=== PATIENT | female | born 1975 | race Caucasian/White ===

== ENCOUNTER 2016-12-04 07:48 | Emergency (ER) | payer OTHER ==
[~2016-12-04] VITALS: Ht 170.2 cm; Wt 95.5 kg
[~2016-12-04 07:48] MED LIST: ACYC400T2 PO; ALPR0.5T PO; CHOL500050 PO; CYAN100017 SL; LOSA100T3 PO; NPR500T PO; PHEN-773 PO; PROM25TA14 PO; TRAM-14 PO; TRAM50TA2 PO
[2016-12-04 07:50] VITALS: BP 145/88; PULSE 90; RESP 20; O2SAT 97
[2016-12-04] MEDS ORDERED: Ondansetron 8 mg ODT Tablet ONE (08:10)
[2016-12-04 08:18] LABS: BASOPHILS % (AUTO) 0.2 % (0-3); EOSINOPHILS % (AUTO) 2.1 % (0-5); MONOCYTES % (AUTO) 9.2 % (4-12); Mean Corpuscular Hemoglobin 30.3 pg (27.0-35.0); Mean Corpuscular Volume 90.4 fL (81-100); NEUTROPHILS % (AUTO) 59.4 % (40-74); Platelet Count 268 bil/L (150-400)
[2016-12-04 08:56] LABS: Magnesium 1.8 mg/dL (1.6-2.6)
--- NOTE | 2016-12-04 09:30 | ED.REPORT ---
HPI-Abd Pain F 40 and Over Date of Service Dec 04, 2016 ED Provider: Mika Lau MD Patient is a 41 year old female who presents to the ED complaining of abdominal pain onset 5 days ago. Associated symptoms include nausea, constipation (over the last 4 months), SOB with exertion, and dizziness. She denies vomiting, diarrhea, dysuria, cough, or any other symptoms. Her last BM was yesterday and she is passing gas. Nursing Notes Stated Complaint: ABDOMINAL PAIN Chief Complaint: Female Abdominal Pain Nursing Notes Reviewed: Yes Allergies: Coded Allergies: morphine (Verified Allergy, Intermediate, nausea/vomiting, 12/04/16) trazodone (Verified Allergy, Intermediate, CHEST PAIN, 12/04/16) metoclopramide (Verified Allergy, Unknown, feel like she wants to run.., ) sertraline (Verified Allergy, Unknown, 12/04/16) DOES NOT REMEMBER Scheduled Acyclovir (Acyclovir) 400 Mg Tablet 400 MG PO BID Losartan Potassium (Cozaar) 100 Mg Tablet 100 MG PO DAILY Scheduled PRN Alprazolam (Xanax) 0.5 Mg Tablet 0.5 MG PO TID PRN PRN For Anxiety Magnesium Hydroxide (Milk of Magnesia) 400 Mg/5 Ml Oral.susp 30 ML PO BID PRN PRN For Constipation hold for diarrhea, Naproxen (Naproxen) 500 Mg Tab 500 MG PO BID PRN PRN For Pain Ondansetron (Zofran) 4 Mg Tablet 4 MG PO Q4H PRN PRN For Nausea Phenazopyridine (Phenazopyridine) 100 Mg Tablet 100 MG PO TID PRN PRN . Promethazine (Promethazine) 25 Mg Tablet 25 MG PO Q6H PRN PRN For Nausea Tramadol (Tramadol) 50 Mg Tablet 50 MG PO HS PRN PRN For Pain Tramadol (Ultram) 50 Mg Tablet 50 MG PO Q4H PRN PRN Pain Miscellaneous Medications Cholecalciferol (Vitamin D3) (Vitamin D3) 50,000 Unit Capsule 50,000 UNIT PO Cyanocobalamin (Vitamin B-12) (Vitamin B-12) 1,000 Mcg Tab.subl 1,000 MCG SL General Time Seen by MD: 09:36 Chief Complaint Abdominal pain Hx Obtained From: Patient Arrived By: Walk-in Sudden in Onset?: Yes Onset Occurred: 5 days ago Symptom Duration: Since onset Similar Sx Previous: No Risk Factors )( AAA Risk Stratification HypertensionNo Smoking Risk factors reviewed Past Medical History Past Medical History Fibromyalgia Arthritis Interstitial cystitis Depression Reports: Hypertension Past Surgical History Tubal ligation Cholecystectomy Hysterectomy Right salpingo-oophorectomy Reports: Appendectomy, Tonsillectomy Smoking History Never Smoker Social History Alcohol Use: "Social" Drug Use: Denies drug use Other Social History: Ambulatory Status Independent Review of Systems Constitutional: Denies: Chills, Fever Respiratory: Reports: Shortness of breath, Denies: Non-productive cough GI: Reports: Abdominal pain, Constipation, Nausea, Denies: Diarrhea, Vomiting Female: Denies: Dysuria Complete sys rev & neg: except as marked. Neurologic: Reports: Dizziness Physical Exam Vital Signs Vital Signs (First) Date Time Temp Pulse Resp B/P Pulse Ox O2 Delivery O2 Flow Rate FiO2 12/04/16 07:50 36.1 90 20 145/88 97 Room Air Initial VS: Reviewed Head / Eyes: Atraumatic, Normocephalic Skin: Warm, Dry Neurologic: Alert, Oriented, Nonfocal Psychiatric: Mood/affect normal, Behavior normal, Normal thought content General/Constitutional: Awake, Alert, Well developed Respiratory / Chest: Breath sounds NL, Breath sounds = bilat, No respiratory distress Cardiovascular: Heart rate NL, Regular rhythm, Heart sounds NL Tenderness/Guarding/Rebound: Positive: Guarding voluntary, Tender RUQ... Bowel Sounds / Distention: Positive: Distention mild Back: Atraumatic Interpretation & Diagnostics Lab Results Interpretation Result Diagram: 12/04/16 0800 12/04/16 0800 Test 12/04/16 08:00 12/04/16 08:19 White Blood Count 6.5th/mm3 (3.8-10.1) Red Blood Count 4.69mil/mm3 (3.90-5.20) Hemoglobin 14.2g/dL (12.0-15.6) Hematocrit 42.4% (35.0-46.0) Mean Corpuscular Volume 90.4fL (81-100) Mean Corpuscular Hemoglobin 30.3pg (27.0-35.0) Mean Corpuscular Hemoglobin Concent 33.5% (32.0-37.0) Red Cell Distribution Width 13.2% (12.3-15.4) Platelet Count 268bil/L (150-400) Neutrophils (%) (Auto) 59.4% (40-74) Lymphocytes (%) (Auto) 28.8% (14-46) Monocytes (%) (Auto) 9.2% (4-12) Eosinophils (%) (Auto) 2.1% (0-5) Basophils (%) (Auto) 0.2% (0-3) Sodium Level 141mEq/L (134-144) Potassium Level 3.6mEq/L (3.5-5.2) Chloride Level 102mEq/L (97-108) Carbon Dioxide Level 26mmol/L (18-29) Blood Urea Nitrogen 10mg/dL (6-24) Creatinine 0.73mg/dL (0.57-1.00) Estimat Glomerular Filtration Rate 125mL/min (>59) Glucose Level 105mg/dL (60-99) Calcium Level 10.4mg/dL (8.5-10.1) Magnesium Level 1.8mg/dL (1.6-2.6) Total Bilirubin 0.4mg/dL (0.0-1.2) Aspartate Amino Transf (AST/SGOT) 20U/L (0-50) Alanine Aminotransferase (ALT/SGPT) 35U/L (0-32) Alkaline Phosphatase 66U/L (25-150) Troponin T 0.010ug/L (0.0-0.011) Total Protein 7.0g/dL (6.4-8.4) Albumin 4.3g/dL (3.4-5.0) Lipase 37U/L (13-60) Hold James Top Tube Received (Received) Hold Urine Received (Received) ECG Interpretation ECG Interpretation: Sinus rate 79 No abnormalities Time: 09:50 Interpreted by: ED physician X-Ray Abdominal Interpretation IMPRESSION: No definite evidence of bowel obstruction or free air. Dictated by: Melinda Bonner MD, PhD on 12/04/2016 at 11:16 Approved by: Melinda Bonner MD, PhD on 12/04/2016 at 11:16 Study: 2 view Interpretation / Wet Read by: Interpret - Radiologist CT Abd / Pelvis Interpretation IMPRESSION: 1. Hepatic steatosis. 2. Status post cholecystectomy. 3. No free fluid or air. 4. No inflammatory changes. 5. No dilated loops of bowel. 6. Possible prior appendectomy. Please correlate with surgical history. 7. 2 mm nonobstructing right renal stone. Dictated by: Melinda Bonner MD, PhD on 12/04/2016 at 13:03 Approved by: Melinda Bonner MD, PhD on 12/04/2016 at 13:03 Study type: Abdominal CT IV contrast Interpretation / Wet Read by: Interpret - Radiologist Re-Eval/Medical Decision Med Decision/Clinical Course Nonspecific abdominal pain, there may be a component of constipation herabdominalseries.Doingmuchbetterandwillbedischarged.MilkofmagnesiaandZofr anprescribed.Returnprecautionsgiven. Re-Evaluation/Progress #1: Time of Eval: 11:06 )( Re-Eval Abdomen: Tenderness Re-Evaluation/Progress Note: Rechecked patient. Her RUQ pain persists. She had positional dizziness when sitting up. Performed full neurological exam. Cranial nerves II-XII intact. Cerebellar, sensory, and motor functions all normal. No indication that transient vertigo is a CVA. Re-Evaluation/Progress #2: Time of Eval: 13:19 )( Re-Eval Abdomen: Distention (Mild ) Re-Evaluation/Progress Note: Patient is feeling better. Discussed plan for discharge. Patient understands and agrees with plan. All questions addressed at this time. Counseled Regarding: Diagnosis, Lab results, Need for follow-up, When/why to return to ED Discharge & Departure Primary Impression: Pain, abdominal, nonspecific Disposition: Home Discharge Condition All VS Reviewed: Yes Condition: Stable Additional Instructions: Use milk of magnesia to help with bowel movements. Take Zofran as needed for nausea. Follow-up with your regular doctor. Return to the ER as needed for worsening abdominal pain or other concerns. Referrals: Yohana Ramires DO (PCP) Scribe Attestation Portions of this note were transcribed by Wendy Bernal. I, Dr. Lau personally performed the history, physical exam and medical decision-making; I reviewed and confirmed the accuracy of the information in the transcribed note. Signed by: Wendy Bernal 12/04/16, 1323 copies to: Yohana Ramires Timothy S DO Dec 04, 2016 09:30 WENDY BERNAL Dec 04, 2016 09:42
[2016-12-04] MEDS ORDERED: Alum-Mag Hydrox-Simeth 30 mL Suspension PO ONE (09:40)
[2016-12-04] MEDS ORDERED: 0.9% Sodium Chloride 1,000 ML IV ONE ×2 (09:40→11:20)
[2016-12-04] MEDS: Ondansetron 2 mg/mL 2 mL Inj IVPUSH PRN ×3 (10:05→12:38)
[2016-12-04] MEDS ORDERED: Ketorolac 15 mg/mL Inj IVPUSH ONE (11:20)
--- NOTE | 2016-12-04 11:21 | DRSVH ---
PROCEDURE: X-RAY ACUTE ABDOMINAL SERIES ([id number]) INDICATIONS: upper abd pain, distention TECHNIQUE: One view chest and two views of the abdomen were acquired. COMPARISON: [facility], CR, ABD ACUTE SERIES, 09/16/2011, 14:55. FINDINGS: Surgical changes and devices: Cholecystectomy clips Chest: Lungs are clear. Heart size is normal. No pleural effusions. No pneumoperitoneum. Abdomen: Bowel gas pattern is normal. No suspicious calcifications. Visualized solid organ contour s appear normal. Bones: No suspicious bony lesions. IMPRESSION: No definite evidence of bowel obstruction or free air. Dictated by: Melinda Bonner MD, PhD on 12/04/2016 at 11:16 Approved by: Melinda Bonner MD, PhD on 12/04/2016 at 11:16
[2016-12-04 12:43] VITALS: BP 131/57; PULSE 88; O2SAT 98
--- NOTE | 2016-12-04 13:04 | DRSVH ---
PROCEDURE: CT ABDOMEN AND PELVIS WITH CONTRAST ([id number]) INDICATIONS: RUQ pain TECHNIQUE: After the administration of intravenous contrast, 5 mm thick sections acquired from the diaphragm to the symphysis. 5 mm coronal and sagittal reformats were acquired. For radiation dose reduction, the following was used: automated exposure control, adjustment of mA and/or kV according to patient siz e. COMPARISON: None. FINDINGS: Image quality: Excellent. ABDOMEN: Lung bases: Lung bases are clear. Heart size is normal. Solid organs: Liver and spleen are normal in size and enhancement. Diffuse fatty infiltration of the liver is noted. Gallbladder is surgically absent. Biliary system is non dilated. Pancreas enhances normally. No adrenal nodules. Kidneys demonstrate normal size and enhancement, without hydronephro sis. 2 mm nonobstructing right renal stone is noted. Small left renal cyst is noted. Peritoneum and bowel: Bowel loops demonstrate normal wall thickness and caliber. No free fluid or a ir. The appendix is not identified and may be surgically absent. Nodes and vessels: No retroperitoneal or mesenteric adenopathy by size criteria. Aorta and inferior vena cava are normal in size. Miscellaneous: No ventral hernias. PELVIS: Genitourinary: Bladder wall thickness is normal. Small left adnexal follicles are noted. The uterus is atrophic or surgically absent. Miscellaneous: No inguinal hernias or adenopathy. Bones: No suspicious bony lesions. No vertebral body compression fractures. IMPRESSION: 1. Hepatic steatosis. 2. Status post cholecystectomy. 3. No free fluid or air. 4. No inflammatory changes. 5. No dilated loops of bowel. 6. Possible prior appendectomy. Please correlate with surgical history. 7. 2 mm nonobstructing right renal stone. Dictated by: Melinda Bonner MD, PhD on 12/04/2016 at 13:03 Approved by: Melinda Bonner MD, PhD on 12/04/2016 at 13:03
[2016-12-04] MEDS ORDERED: MAGN400O4 PO (13:17)
[2016-12-04] MEDS ORDERED: ONDA4TAB6 PO (13:17)
[2016-12-04 13:30] VITALS: BP 131/98; PULSE 83; RESP 20; O2SAT 98
[2017-02-26] MEDS ORDERED: METO-272 PO (12:57)
[2017-02-26] MEDS ORDERED: MULT-666 PO (12:57)
[2017-02-26] MEDS ORDERED: HYDR25TA4 PO (12:57)
== END 2016-12-04 13:31 | disposition home or self-care (01) ==
LOC: SED 07:48
DX: R10.11 Right upper quadrant pain (principal); R11.0 Nausea; K59.00 Constipation, unspecified; R06.02 Shortness of breath; R42 Dizziness and giddiness; M79.7 Fibromyalgia; I10 Essential (primary) hypertension; Z90.49 Acquired absence of other specified parts of digestive tract; Z88.5 Allergy status to narcotic agent; Z88.8 Allergy status to other drugs, medicaments and biological substances
CPT/HCPCS: 36415; 74022; 74177; 80053; 83690; 83735; 84484; 85025; 93005; 96361; 96374; 96375; 96376; 99285; J1885; J2405; J7030; Q9967

== ENCOUNTER 2017-01-21 15:28 | Emergency (ER) | payer OTHER ==
[~2017-01-21] VITALS: Ht 170.2 cm; Wt 95.0 kg
[~2017-01-21 15:28] MED LIST changes: +MAGN400O4 PO; +ONDA4TAB6 PO
[2017-01-21 15:31] VITALS: BP 181/104; PULSE 118; RESP 18; O2SAT 98
--- NOTE | 2017-01-21 16:13 | ED.REPORT ---
HPI-Abd Pain F 40 and Over Date of Service Jan 21, 2017 ED Provider: De Rocha MD Patient is a 41 year old female with a history of constapation who presents to the ED complaining of rectal bleeding onset Sunday but worse today. Associated symptoms include abdominal pain and back pain onset Sunday. Her bleeding has gotten progressively worse and she went from passing blood streaked stool to completely bloody stools. She has had no rectal bleeding today. She denies fever, vomiting, or any other symptoms. She recently visited her doctor for a "lump in the groin in the fold of my leg" . She had a CT scan in November when she was in the ED for upper abdominal pain. Nursing Notes Stated Complaint: RECTAL BLEEDING, ABDOMINAL PAIN, BACK PAIN Chief Complaint: Female Abdominal Pain Nursing Notes Reviewed: Yes Allergies: Coded Allergies: morphine (Verified Allergy, Intermediate, nausea/vomiting, 12/04/16) trazodone (Verified Allergy, Intermediate, CHEST PAIN, 12/04/16) gluten (Verified Allergy, Unknown, 01/21/17) lactase (Verified Allergy, Unknown, 01/21/17) metoclopramide (Verified Allergy, Unknown, feel like she wants to run.., ) peanut (Verified Allergy, Unknown, 01/21/17) sertraline (Verified Allergy, Unknown, 12/04/16) DOES NOT REMEMBER tree nut (Verified Allergy, Unknown, 01/21/17) Scheduled Acyclovir (Acyclovir) 400 Mg Tablet 400 MG PO BID Losartan Potassium (Cozaar) 100 Mg Tablet 100 MG PO DAILY Scheduled PRN Alprazolam (Xanax) 0.5 Mg Tablet 0.5 MG PO TID PRN PRN For Anxiety Hydrocodone-Acetaminophen 5-325 mg (Hydrocodone-Acetaminophen 5-325 mg) 1 Each Tablet 1-2 TABLET PO Q4H PRN PRN For Pain Magnesium Hydroxide (Milk of Magnesia) 400 Mg/5 Ml Oral.susp 30 ML PO BID PRN PRN For Constipation hold for diarrhea, Naproxen (Naproxen) 500 Mg Tab 500 MG PO BID PRN PRN For Pain Ondansetron (Zofran) 4 Mg Tablet 4 MG PO Q4H PRN PRN For Nausea Ondansetron ODT (Zofran ODT) 4 Mg Tablet 4 MG PO Q4H PRN PRN For Nausea Phenazopyridine (Phenazopyridine) 100 Mg Tablet 100 MG PO TID PRN PRN . Promethazine (Promethazine) 25 Mg Tablet 25 MG PO Q6H PRN PRN For Nausea Tramadol (Tramadol) 50 Mg Tablet 50 MG PO HS PRN PRN For Pain Tramadol (Ultram) 50 Mg Tablet 50 MG PO Q4H PRN PRN Pain Miscellaneous Medications Cholecalciferol (Vitamin D3) (Vitamin D3) 50,000 Unit Capsule 50,000 UNIT PO Cyanocobalamin (Vitamin B-12) (Vitamin B-12) 1,000 Mcg Tab.subl 1,000 MCG SL General Time Seen by MD: 16:12 Chief Complaint Rectal bleeding Hx Obtained From: Patient Arrived By: Walk-in Sudden in Onset?: Yes Onset Occurred: 6 days ago Symptom Duration: Since onset Progression since Onset: Gradually worsening Risk Factors )( AAA Risk Stratification HypertensionNo Smoking Risk factors reviewed Past Medical History Past Medical History Fibromyalgia Arthritis Interstitial cystitis Depression glomerulonephritis Reports: Hypertension, Denies: Asthma, Diabetes mellitus Past Surgical History Tubal ligation Cholecystectomy Hysterectomy Right salpingo-oophorectomy Reports: Appendectomy, Tonsillectomy Smoking History Never Smoker Social History Alcohol Use: "Social" Drug Use: Denies drug use Other Social History: Ambulatory Status Independent Review of Systems +rectal bleeding Constitutional: Denies: Fever GI: Reports: Abdominal pain, Denies: Vomiting Complete sys rev & neg: except as marked. Physical Exam Vital Signs Vital Signs (First) Date Time Temp Pulse Resp B/P Pulse Ox O2 Delivery O2 Flow Rate FiO2 01/21/17 15:31 36.8 118 18 181/104 98 Room Air Initial VS: Reviewed Head / Eyes: Atraumatic, Normocephalic Skin: Warm, Dry Neurologic: Alert, Oriented, Nonfocal General/Constitutional: Awake, Alert, Well developed Respiratory / Chest: No respiratory distress Cardiovascular: Peripheral circulation NL Abdomen: Soft, No guarding Tenderness/Guarding/Rebound: Positive: Tender LLQ... Back: Inspection NL Rectum / Perineum: Atraumatic, No fissures No stool. 1 small skin tag at 6 o'clock position. Lower Extremity / Pelvis / MS: No edema Interpretation & Diagnostics Lab Results Interpretation Result Diagram: 01/21/17 1605 01/21/17 1605 Test 01/21/17 16:05 White Blood Count 7.0th/mm3 (3.8-10.1) Red Blood Count 4.66mil/mm3 (3.90-5.20) Hemoglobin 14.2g/dL (12.0-15.6) Hematocrit 42.1% (35.0-46.0) Mean Corpuscular Volume 90.3fL (81-100) Mean Corpuscular Hemoglobin 30.5pg (27.0-35.0) Mean Corpuscular Hemoglobin Concent 33.7% (32.0-37.0) Red Cell Distribution Width 13.0% (12.3-15.4) Platelet Count 234bil/L (150-400) Neutrophils (%) (Auto) 66.7% (40-74) Lymphocytes (%) (Auto) 25.1% (14-46) Monocytes (%) (Auto) 7.0% (4-12) Eosinophils (%) (Auto) 0.6% (0-5) Basophils (%) (Auto) 0.3% (0-3) Sodium Level 140mEq/L (134-144) Potassium Level 3.6mEq/L (3.5-5.2) Chloride Level 103mEq/L (97-108) Carbon Dioxide Level 21mmol/L (18-29) Blood Urea Nitrogen 11mg/dL (6-24) Creatinine 0.66mg/dL (0.57-1.00) Estimat Glomerular Filtration Rate 141mL/min (>59) Glucose Level 101mg/dL (60-99) Calcium Level 10.0mg/dL (8.5-10.1) Magnesium Level 2.0mg/dL (1.6-2.6) Total Bilirubin 0.4mg/dL (0.0-1.2) Aspartate Amino Transf (AST/SGOT) 21U/L (0-50) Alanine Aminotransferase (ALT/SGPT) 42U/L (0-32) Alkaline Phosphatase 61U/L (25-150) Total Protein 7.4g/dL (6.4-8.4) Albumin 4.4g/dL (3.4-5.0) Lipase 39U/L (13-60) Hold James Top Tube Received (Received) Re-Eval/Medical Decision Re-Evaluation/Progress #1: Time of Eval: 16:57 )( Re-Eval Abdomen: Soft Re-Evaluation/Progress Note: Rechecked patient. She feels slightly improved. Re-Evaluation/Progress #2: Time of Eval: 17:40 )( Re-Eval Abdomen: Soft Patient Status: Condition improved Re-Evaluation/Progress Note: Rechecked patient. she is feel much better. Discussed plan for discharge. Patient understands and agrees with plan. All questions addressed at this time. Counseled Regarding: Diagnosis, Lab results, Need for follow-up, When/why to return to ED Discharge & Departure Primary Impression: Abdominal pain Abdominal location: lower abdomen Qualified Code: R10.30 - Lower abdominal pain, unspecified Additional Impression: Hematochezia Disposition: Home Discharge Condition All VS Reviewed: Yes Condition: Improved Patient Instructions: Rectal Bleeding (ED) Additional Instructions: Laboratory testing is reassuring. Of course it is not OK that you are experiencing abdominal pain with rectal bleeding. I think consultation with a invoice checker is the next appropriate step. Use ondansetron as needed for nausea and hydrocodone/APAP as needed for severe pain. Call in the morning for an appointment later this week. If you are having trouble making this appointment, call back to the emergency department. Referrals: Yohana Ramires DO (PCP) Scribe Attestation Portions of this note were transcribed by Wendy Bernal. I, Dr. Rocha personally performed the history, physical exam and medical decision-making; I reviewed and confirmed the accuracy of the information in the transcribed note. Signed by: Wendy Bernal 01/21/2017, [id number] copies to: Yohana Ramires DO; Gael Prince MD, Kirk H MD Jan 21, 2017 16:13 WENDY BERNAL Jan 21, 2017 16:22
[2017-01-21 16:18] LABS: BASOPHILS % (AUTO) 0.3 % (0-3); EOSINOPHILS % (AUTO) 0.6 % (0-5); Mean Corpuscular Hemoglobin 30.5 pg (27.0-35.0); Mean Corpuscular Volume 90.3 fL (81-100); NEUTROPHILS % (AUTO) 66.7 % (40-74); Platelet Count 234 bil/L (150-400)
[2017-01-21] MEDS ORDERED: 0.9% Sodium Chloride 1,000 ML IV ONE (16:37)
[2017-01-21] MEDS ORDERED: HYDROmorphone 1 mg/mL Inj IVPUSH PRN (16:40)
[2017-01-21] MEDS ORDERED: Ondansetron 2 mg/mL 2 mL Inj IVPUSH PRN (16:40)
[2017-01-21] MEDS ORDERED: Pantoprazole 4 mg/mL 10 mL Inj IVPUSH ONE (16:40)
[2017-01-21] MEDS ORDERED: ONDA4TAB9 PO (17:05)
[2017-01-21] MEDS ORDERED: HYDR-4003 PO (17:05)
[2017-01-21] MEDS ORDERED: HYDROmorphone 0.5 mg/0.5 mL iSecure Syringe IVPUSH ONE (17:25)
[2017-01-21] MEDS ORDERED: HYDROmorphone 1 mg/mL Inj IVPUSH ONE (17:26)
[2017-01-21 18:21] VITALS: BP 137/86; PULSE 72; O2SAT 95
[2017-02-26] MEDS ORDERED: MULT-666 PO (12:57)
[2017-02-26] MEDS ORDERED: METO-272 PO (12:57)
[2017-02-26] MEDS ORDERED: HYDR25TA4 PO (12:57)
== END 2017-01-21 18:17 | disposition home or self-care (01) ==
LOC: SED 15:28
DX: K92.1 Melena (principal); I10 Essential (primary) hypertension; Z90.710 Acquired absence of both cervix and uterus; Z88.5 Allergy status to narcotic agent; Z88.8 Allergy status to other drugs, medicaments and biological substances
CPT/HCPCS: 36415; 80053; 83690; 83735; 85025; 96361; 96374; 96375; 96376; 99285; J1170; J2405; J7030

== ENCOUNTER 2017-01-26 14:13 | Emergency (ER) | payer OTHER ==
[~2017-01-26] VITALS: Ht 170.2 cm; Wt 95.5 kg
[~2017-01-26 14:13] MED LIST changes: +HYDR-4003 PO; +ONDA4TAB9 PO
[2017-01-26 14:58] VITALS: BP 158/97; PULSE 96; RESP 16; O2SAT 97
[2017-01-26 15:49] LABS: BASOPHILS % (AUTO) 0.3 % (0-3); EOSINOPHILS % (AUTO) 1.3 % (0-5); MONOCYTES % (AUTO) 7.9 % (4-12); Mean Corpuscular Hemoglobin 31.2 pg (27.0-35.0); Mean Corpuscular Volume 90.9 fL (81-100); Platelet Count 264 bil/L (150-400)
[2017-01-26 16:33] LABS: APPEARANCE,URINE CLEAR (CLEAR,HAZY); COLOR,URINE YELLOW (YELLOW); OCCULT BLOOD,URINE NEGATIVE (NEGATIVE); UROBILINOGEN,URINE NORMAL (NORMAL)
[2017-01-26] MEDS ORDERED: 0.9% Sodium Chloride 1,000 ML IV ONE (17:57)
[2017-01-26] MEDS ORDERED: Ondansetron 2 mg/mL 2 mL Inj IVPUSH ONE (18:05)
--- NOTE | 2017-01-26 18:05 | ED.REPORT ---
HPI-Abd Pain F 40 and Over Date of Service Jan 26, 2017 ED Provider: Osvaldo Mackay PA-C Ruby is a 41-year-old female with a history of hypertension and hepatic steatosis presents with a chief complaint of abdominal and back pain. Patient states that she was seen in this department 6 days ago for similar symptoms of pain in her lower abdomen and in her back between her shoulder blades. The pain has worsened since then. She also complains of nausea and epigastric pain that is aggravated by eating, and she has been attempting to minimize her pain by only "soft things" drinking Sprite. She states she has had small amount of dark red blood on the toilet paper yesterday. She reports only low volume stool , and not feeling like she is totally voiding for several days. After her previous visit she was referred to GI, and had the follow-up appointment today. She reports being told that she needs a scope. Denies vomiting, diarrhea, melena, hematochezia, urinary symptoms, chest pain, difficulty breathing. Nursing Notes Stated Complaint: BACK PAIN Chief Complaint: Back Pain or Injury Nursing Notes Reviewed: Yes Allergies: Coded Allergies: morphine (Verified Allergy, Intermediate, nausea/vomiting, 01/26/17) trazodone (Verified Allergy, Intermediate, CHEST PAIN, 01/26/17) gluten (Verified Allergy, Unknown, 01/26/17) lactase (Verified Allergy, Unknown, 01/26/17) metoclopramide (Verified Allergy, Unknown, feel like she wants to run.., ) peanut (Verified Allergy, Unknown, 01/26/17) sertraline (Verified Allergy, Unknown, 01/26/17) DOES NOT REMEMBER tree nut (Verified Allergy, Unknown, 01/26/17) Scheduled Acyclovir (Acyclovir) 400 Mg Tablet 400 MG PO BID Losartan Potassium (Cozaar) 100 Mg Tablet 100 MG PO DAILY Ondansetron ODT (Ondansetron ODT) 4 Mg Tab.rapdis 4-8 MG PO QID Polyethylene Glycol 3350 (Miralax) 17 Gm Powd.pack 17 GM PO DAILY Scheduled PRN Alprazolam (Xanax) 0.5 Mg Tablet 0.5 MG PO TID PRN PRN For Anxiety Hydrocodone-Acetaminophen 5-325 mg (Hydrocodone-Acetaminophen 5-325 mg) 1 Each Tablet 1-2 TABLET PO Q4H PRN PRN For Pain Magnesium Hydroxide (Milk of Magnesia) 400 Mg/5 Ml Oral.susp 30 ML PO BID PRN PRN For Constipation hold for diarrhea, Naproxen (Naproxen) 500 Mg Tab 500 MG PO BID PRN PRN For Pain Ondansetron (Zofran) 4 Mg Tablet 4 MG PO Q4H PRN PRN For Nausea Ondansetron ODT (Zofran ODT) 4 Mg Tablet 4 MG PO Q4H PRN PRN For Nausea Phenazopyridine (Phenazopyridine) 100 Mg Tablet 100 MG PO TID PRN PRN . Promethazine (Promethazine) 25 Mg Tablet 25 MG PO Q6H PRN PRN For Nausea Tramadol (Tramadol) 50 Mg Tablet 50 MG PO HS PRN PRN For Pain Tramadol (Ultram) 50 Mg Tablet 50 MG PO Q4H PRN PRN Pain Miscellaneous Medications Cholecalciferol (Vitamin D3) (Vitamin D3) 50,000 Unit Capsule 50,000 UNIT PO Cyanocobalamin (Vitamin B-12) (Vitamin B-12) 1,000 Mcg Tab.subl 1,000 MCG SL General Time Seen by MD: 17:42 Chief Complaint Abdominal pain Sudden in Onset?: No Past Medical History Past Medical History Fibromyalgia Arthritis Interstitial cystitis Depression glomerulonephritis Reports: Hypertension Past Surgical History Tubal ligation Cholecystectomy Hysterectomy Right salpingo-oophorectomy Reports: Appendectomy, Tonsillectomy Smoking History Never Smoker Social History Alcohol Use: "Social" Drug Use: Denies drug use Other Social History: Ambulatory Status Independent Review of Systems General: Denies fever, chills, malaise. HEENT: Denies congestion, headache, sore throat. Respiratory: Denies dyspnea, cough, shortness of breath, wheezing. Cardiovascular: Denies chest pain, palpitations. Gastrointestinal: Admits abdominal pain, nausea. Denies vomiting, diarrhea Genitourinary: Denies frequency, urgency, dysuria, hematuria. Denies vaginal bleeding/discharge. Otherwise as noted in HPI. Physical Exam General: Well appearing, well developed, obese, no acute distress. Head: Atraumatic, normocephalic. Eyes: No scleral icterus or injection. No discharge. Vision grossly intact. ENT: Voice clear, hearing grossly intact. Respiratory: Regular rate and rhythm. Breath sounds present, clear to auscultation and equal bilaterally. No respiratory distress. No increased work of breathing, speaks in complete sentences. Cardiovascular: Regular rate and rhythm, without murmur, gallop or rub. No pedal edema. Gastrointestinal: Obese abdomen mildly tender in lower quadrants without guarding or rebound. Bowel sounds normoactive. Skin: Warm and dry. Neurological: Grossly nonfocal. Psychological: Alert and oriented. Speech appropriate, linear and logical. Behavior appropriate. Vital Signs Vital Signs (First) Date Time Temp Pulse Resp B/P Pulse Ox O2 Delivery O2 Flow Rate FiO2 01/26/17 14:58 36.8 96 16 158/97 97 Room Air Initial VS: Reviewed, Vital signs normal Interpretation & Diagnostics Lab Results Interpretation Result Diagram: 01/26/17 1531 01/26/17 1531 Test 01/26/17 15:31 01/26/17 16:14 White Blood Count 7.2th/mm3 (3.8-10.1) Red Blood Count 4.62mil/mm3 (3.90-5.20) Hemoglobin 14.4g/dL (12.0-15.6) Hematocrit 42.0% (35.0-46.0) Mean Corpuscular Volume 90.9fL (81-100) Mean Corpuscular Hemoglobin 31.2pg (27.0-35.0) Mean Corpuscular Hemoglobin Concent 34.3% (32.0-37.0) Red Cell Distribution Width 13.1% (12.3-15.4) Platelet Count 264bil/L (150-400) Neutrophils (%) (Auto) 63.0% (40-74) Lymphocytes (%) (Auto) 27.2% (14-46) Monocytes (%) (Auto) 7.9% (4-12) Eosinophils (%) (Auto) 1.3% (0-5) Basophils (%) (Auto) 0.3% (0-3) Sodium Level 137mEq/L (134-144) Potassium Level 3.9mEq/L (3.5-5.2) Chloride Level 98mEq/L (97-108) Carbon Dioxide Level 27mmol/L (18-29) Blood Urea Nitrogen 9mg/dL (6-24) Creatinine 0.77mg/dL (0.57-1.00) Estimat Glomerular Filtration Rate 118mL/min (>59) Glucose Level 101mg/dL (60-99) Calcium Level 10.3mg/dL (8.5-10.1) Magnesium Level 2.0mg/dL (1.6-2.6) Total Bilirubin 0.4mg/dL (0.0-1.2) Aspartate Amino Transf (AST/SGOT) 25U/L (0-50) Alanine Aminotransferase (ALT/SGPT) 45U/L (0-32) Alkaline Phosphatase 66U/L (25-150) Total Protein 7.4g/dL (6.4-8.4) Albumin 4.5g/dL (3.4-5.0) Lipase 34U/L (13-60) Hold James Top Tube Received (Received) Urine Color Yellow (YELLOW) Urine Appearance Clear (CLEAR,HAZY) Urine pH 6.0 (5.0-8.0) Urine Specific [place] 1.005 (1.003-1.035) Urine Protein Negativemg/dL (NEG,TRACE) Urine Glucose (UA) Negativemg/dL (NEGATIVE) Urine Ketones Negativemg/dL (NEGATIVE) Urine Occult Blood Negative (NEGATIVE) Urine Nitrite Negative (NEGATIVE) Urine Bilirubin Negative (NEGATIVE) Urine Urobilinogen Normalmg/dL (NORMAL) Urine Leukocyte Esterase Negative (NEGATIVE) Urine RBC 0-2/hpf (0-2) Urine WBC 0-5/hpf (0-5) Urine Epithelial Cells Moderate/hpf (NONE-MOD) Urine Crystals None seen (NONE SEEN) Urine Bacteria Few/hpf (NONE-FEW) Urine Hyaline Casts None/lpf (NONE) Urine Granular Casts None seen (NONE SEEN) Urine Waxy Casts None seen (NONE SEEN) Urine Red Blood Cell Casts None seen (NONE SEEN) Urine White Blood Cell Casts None seen (NONE SEEN) Urine Mucus None seen (None Seen) Urine Trichomonas None seen (NONE SEEN) Urine Yeast None (NONE SEEN) Urinalysis Comment None Urine Culture Reflexed Not indicated Re-Eval/Medical Decision Med Decision/Clinical Course I saw this patient in conjunction with Dr. liz, who met with and examined the patient. Xiphoid to a female with a history of many emergency Department visits, presenting with a chief complaint of abdominal pain. She reports pain in her lower abdomen as well as her back is aggravated by eating. This is similar to the pain she felt when she was seen in this department approximately one week ago, but she reports it is worsening. She is asked to follow up with GI after her previous visit. She was seen by GI today and told that she needed a scope. She denies red flag symptoms for cauda equina syndrome. She reports a history of hysterectomy and right oophorectomy, she says her left ovary. She has a history of cholecystectomy. Review of records reveals a normal abdominal CT approximately 2 months ago, as well as several CTs, MRIs in recent years. Exam reveals mild lower abdominal tenderness as well as mild epigastric tenderness without guarding or rebound. No midline spinous process tenderness or CVA tenderness. She is afebrile. CBC is normal, CMP reveals mild hypercalcemia at 10.3 as well as mild ALT increase. Neither is thought to be clinically significant. Urinalysis is normal Patient responds well to 1 L normal saline as well as ondansetron and ketorolac. She feels ready for discharge to home. I feel a dangerous cause of her nominal pain is unlikely in light of her normal vitals and labs. I believe it is unlikely that this is a left ovarian torsion, appendicitis, diverticulitis, AAA, bowel obstruction, perforation, common bile duct obstruction, kidney infection, kidney stone. Discharged with prescription for ondansetron, MiraLAX. Advised GI follow-up as planned. Provided emergency return precautions. She understands and agrees with the plan. Discharge & Departure Primary Impression: Abdominal pain Abdominal location: unspecified location Qualified Code: R10.9 - Unspecified abdominal pain Disposition: Home Discharge Condition All VS Reviewed: Yes Condition: Stable Patient Instructions: Acute Abdominal Pain (ED) Additional Instructions: Evaluation for abdominal pain in the emergency department. Physical exam and labs are reassuring that this is unlikely to be caused by a dangerous condition such as appendicitis, pancreatitis, bleeding ulcer, kidney infection or kidney stone.. I believe you are stable and safe to be discharged to home. Please continue taking ondansetron, for nausea. I will also prescribe MiraLAX which will help to pass stool and hopefully improve your abdominal pain. I will also prescribe omeprazole to reduce acid in your stomach. Recommend treating the pain with 1000 mg of Tylenol every 6 hours. You can add 400 mg of Motrin to this every 6 hours for pain not controlled by Tylenol. Follow-up with GI as you have planned. Return emergency Department for any new or worsening symptoms including fever, increasing pain, vomiting not controlled by medication, increasingly bloody stools. Referrals: Yohana Ramires DO (PCP) EDSupervising Provider for APC: Ashkan Liz MD copies to: Yohana Ramires Seth PA-C Jan 26, 2017 18:05
[2017-01-26 18:29] VITALS: BP 146/92; PULSE 89; RESP 15; O2SAT 98
[2017-01-26] MEDS ORDERED: POLY17PO6 PO (19:14)
[2017-01-26] MEDS ORDERED: ONDA4TAB12 PO (19:14)
[2017-01-26 19:48] VITALS: BP 146/92; PULSE 89; RESP 15; O2SAT 98
[2017-02-26] MEDS ORDERED: METO-272 PO (12:57)
[2017-02-26] MEDS ORDERED: MULT-666 PO (12:57)
[2017-02-26] MEDS ORDERED: HYDR25TA4 PO (12:57)
== END 2017-01-26 19:49 | disposition home or self-care (01) ==
LOC: SED 14:13
DX: R10.13 Epigastric pain (principal); I10 Essential (primary) hypertension; M79.7 Fibromyalgia; Z88.5 Allergy status to narcotic agent; Z88.8 Allergy status to other drugs, medicaments and biological substances
CPT/HCPCS: 36415; 80053; 81000; 81025; 83690; 83735; 85025; 96361; 96374; 96375; 99284; J2405; J7030

== ENCOUNTER 2017-02-27 11:41 | Day surgery (SDC) | payer OTHER ==
[~2017-02-27] VITALS: Ht 170.2 cm; Wt 95.0 kg
[~2017-02-27 11:41] MED LIST changes: -ALPR0.5T PO; +HYDR25TA4 PO; -LOSA100T3 PO; -MAGN400O4 PO; +METO-272 PO; +MULT-666 PO; -NPR500T PO; -ONDA4TAB9 PO; -PHEN-773 PO; -TRAM-14 PO; -TRAM50TA2 PO
[2017-02-27] MEDS ORDERED: Propofol 10,000 mCg/mL 20 mL Inj ONE (11:42)
[2017-02-27] MEDS ORDERED: Lidocaine PF 1% 30 mL Inj ONE (11:42)
[2017-02-27 12:01] VITALS: BP 142/99; PULSE 85; RESP 16; O2SAT 98
[2017-02-27] MEDS: Lactated Ringer's 1,000 ML IV ONE ×2 (12:07→13:29)
[2017-02-27] MEDS ORDERED: Lactated Ringer's 1,000 ML IV SCH (12:32)
--- NOTE | 2017-02-27 12:32 | PCM.HPANE ---
Patient Data Date of Service: Feb 27, 2017 Surgeon Admitting Provider: Attending Provider:Gael Prince MD Primary Care Physician:Yohana Ramires DO Other Provider:Lety Bronson Anesthesia Reason for Visit Rlq Abd Pain, Esophageal Dysphagia Ht/WT & BMI Height (Feet): 5 Height (Inches): 7 Weight (Kilograms): 95 Body Mass Index 32.00 Allergies Coded Allergies: morphine (Verified Allergy, Intermediate, nausea/vomiting, 02/27/17) trazodone (Verified Allergy, Intermediate, CHEST PAIN, 02/27/17) gluten (Verified Allergy, Unknown, 02/27/17) lactase (Verified Allergy, Unknown, 02/27/17) metoclopramide (Verified Allergy, Unknown, feel like she wants to run.., ) peanut (Verified Allergy, Unknown, 02/27/17) sertraline (Verified Allergy, Unknown, 02/27/17) DOES NOT REMEMBER tree nut (Verified Allergy, Unknown, 02/27/17) Past Anesthesia History Anesthesia History: Positive for:: Anesthesia Reactions (unkn to what med, had anesthesia since with no prob.), Denies:: Abnormal Airway, Difficult Intubation, Fam Anesthesia Reaction, Fam Malignant Hypertherm, Malignant Hyperthermia Diabetes History Hx Diabetes?: No MRSA MRSA: No Medications Hypertension Medication: Yes Home Meds Incl Beta Ivanna: Yes Date Beta Ivanna Taken: Feb 26, 2017 Time Beta Ivanna Taken: 20:00 Active Scripts Ondansetron (Zofran)4 Mg Tablet4 Mg PO Q4H PRN For Nausea #6 TABLET Prov:Mika Lau DO 12/04/16 Reported Medications Multivitamin (Once Daily)1 Each Tablet1 Each PO DAILY 02/26/17 Metoprolol Succinate ER 50 Mg Tab.er.24h50 Mg PO DAILY Ref 0 02/26/17 Hydrochlorothiazide 25 Mg Zueklo71 Mg PO DAILY 30 Days Ref 0 02/26/17 Cyanocobalamin (Vitamin B-12) (Vitamin B-12)1,000 Mcg Tab.subl1,000 Mcg SL 10/26/15 Cholecalciferol (Vitamin D3) (Vitamin D3)50,000 Unit Wjkurnk38,000 Unit PO 10/26/15 Acyclovir 400 Mg Ovsxks268 Mg PO BID Ref 0 10/26/15 Discontinued Reported Medications Promethazine 25 Mg Txfvai46 Mg PO Q6H PRN For Nausea Ref 0 10/26/15 Losartan Potassium (Cozaar)100 Mg Hhnvzo370 Mg PO DAILY 10/27/15 Alprazolam (Xanax)0.5 Mg Tablet0.5 Mg PO TID PRN For Anxiety Ref 0 10/26/15 Tramadol (Ultram)50 Mg Fbtorw91 Mg PO Q4H PRN Pain Ref 0 10/26/15 Phenazopyridine 100 Mg Gzrohv165 Mg PO TID PRN . Ref 0 10/26/15 Naproxen 500 Mg Upy998 Mg PO BID PRN For Pain Ref 0 10/26/15 Tramadol 50 Mg Gseyam92 Mg PO HS PRN For Pain Ref 0 01/12/15 Discontinued Scripts Hydrocodone-Acetaminophen 5-325 mg 1 Each Tablet1-2 Tablet PO Q4H PRN For Pain # 20 TABLET Prov:De Rocha MD 01/21/17 Polyethylene Glycol 3350 (Miralax)17 Gm Powd.pack17 Gm PO DAILY #1 TUB Prov:Osvaldo Mackay PA-C 01/26/17 Ondansetron ODT 4 Mg Tab.rapdis4-8 Mg PO QID NAUSEA #20 TABLET Prov:Osvaldo Mackay PA-C 01/26/17 Ondansetron ODT (Zofran ODT)4 Mg Tablet4 Mg PO Q4H PRN For Nausea #15 TABLET Prov:De Rocha MD 01/21/17 Magnesium Hydroxide (Milk of Magnesia)400 Mg/5 Ml Oral.susp30 Ml PO BID PRN For Constipation #1 BOTTLE hold for diarrhea, Prov:Mika Lau DO 12/04/16 History History of ENT Problems?: No HEENT History: Positive for:: Dysphagia (BREAD , MEAT) Denies:: Abnormal Airway Difficult Intubation Hearing Problem Hx of Heart Problems?: No Cardiovascular History: Positive for:: Chest Pain ("I had chest pain before, none recently. Unknown etiology) Hypertension Denies:: AICD Cardiac Surgery Congestive Heart Failure Edema Heart Murmur Irregular Heartbeat Pacemaker Thrombophlebitis Valvular Heart Disease Hx of Respiratory Problem?: No Hx Neurologic Problems?: No Neurological History: Positive for:: Headaches (today she had one) Denies:: Alzheimer's Disease CVA Dementia Dizziness Parkinson's Disease Seizures Hx of GI Problems?: Yes Gastrointestinal History: Positive for:: Gastroesphageal Reflux ( OCCASIONAL) Heartburn Rectal Bleeding Denies:: Diverticulitis Gastrointestinal Bleeding Hepatitis Hiatal Hernia Hx of Problems?: Yes Genitourinary History: Denies:: HX of Hemodialysis Urinary Tract Infection HX of Peritoneal Dialysis: No Female Hx: Denies:: Currently (HYST) Endometriosis Pelvic Inflammatory Hx Musculoskeletal Problems?: No Musculoskeletal History: Denies:: Back Injury Joint Replacement Musculoskeletal Trauma Hx of Psycho/Social Problems?: Yes Psycho Social History: Positive for:: Anxiety (TAKES XANAX) Hx Depression Denies:: Bipolar Disorder Suicide Attempt Hx Surgeries?: Yes (HYST, TONSILS, GALLBLADDER, APPENDIX, 2 C SECTIONS) Hx Any Other Health Problems?: Yes Other History: Positive for:: Hospitalization Denies:: Cancer Thyroid Disease History Blood Transfusions: Denies:: Blood Transfuse Reaction Blood Transfusions Hx Diabetes: No Hx Alcohol Use: Yes (OCCASIONALLY ONCE PER MONTH)Hx Substance Use: No Smoking Status: Never Smoker Have You Smoked inLast 12 mo: No Stop/Bang Treated for Sleep Apnea?: No Do You Have a CPAP Machine?: No S-Snoring: Do You Snore Loudly: No T-Tired: feel tired, fatigued: No O-Obsered: Observed not breath: No P-Blood Pressure: treated: Yes B- Body Mass Index > 35 kg/m2: No A- Age over 50: No N- Neck Large Circumference: No G- Gender Male: No VELMA Total Score: 1 VELMA Risk Assessment: Low Risk, <3 Yes Risk Assessment Category Category 1A: Patient has history of documented sleep apnea, and HAS NOT received any narcotic, sedative or anesthesia administration during this stay. Category 1B: Patient has history of documented sleep apnea, and HAS received any narcotic , sedative or anesthesia administration during this stay Category 2: Patient has SUSPECTED Obstructive Sleep Apnea, and HAS received any narcotic , sedative or anesthesia administration during this stay. Category 3: Patient has SUSPECTED Obstructive Sleep Apnea and HAS NOT received narcotic, sedative or anesthesia administration during this stay. Category 4: Outpatient in Procedural Areas with known sleep apnea or who screen positive for High Risk via the STOP/BANG questionnaire. Exam Exam Vital Signs Vital Signs Date Time Temp Pulse Resp B/P Pulse Ox O2 Delivery O2 Flow Rate FiO2 02/27/17 12:01 37.6 85 16 142/99 98 Room Air General Appearance: Alert, Oriented X3, Cooperative HEENT/AIRWAY: MP 2, Neck Movement (Full), Mouth Opening (Wide) Lungs: Clear to Auscultation, Normal Air Movement Heart: Regular Rate/Rhythm, Normal S1, Normal S2 Meds/Labs/Diagnostics Admission Meds Current Medications Lactated Ringer's (Lr) 1,000 ml @ 10 mls/hr Q24H ONCE IV Last administered on 02/27/17t 12:07; Start 02/27/17 at 06:00; Stop 02/28/17 at 05:59 Diagnositcs echo reviewed, unremarkable Plan Impression Patient chart reviewed, patient interviewed and anesthestic plan with risks, benefits, and alternatives discussed, and informed consent obtained. NPO Status: >8 solids, clears > 2 hours ASA Physical Status: ASA2 Mod Systemic Disease Anesthetic Plan: MAC Bene/Risks/Altern/Consents: Yes HP Complete Prior to Induction: Yes Andrew Rodriguez MD Feb 27, 2017 12:32
[2017-02-27] MEDS ORDERED: Ondansetron 2 mg/mL 2 mL Inj IVPUSH PRN (12:35)
[2017-02-27 13:32] VITALS: BP 171/83; PULSE 89; RESP 16; O2SAT 96
--- NOTE | 2017-02-27 13:40 | PCM.ANEP1 ---
Post Anesthesia Phase 1 PACU Phase 1 Assessment Date of Service: Feb 27, 2017 Vital Signs Vital Signs Date Time Temp Pulse Resp B/P Pulse Ox O2 Delivery O2 Flow Rate FiO2 02/27/17 13:32 36.4 89 16 171/83 96 Room Air 02/27/17 12:01 37.6 85 16 142/99 98 Room Air Anesthetic Administered: MAC Level of Alertness: Awake, talking JOLLEY's with Equal Strength: Yes Pain: No Nausea or Vomiting: No Oxygen Delivery: Room Air Lungs: Normal Air Movement Andrew Rodriguez MD Feb 27, 2017 13:40
[2017-02-27 13:41] VITALS: BP 169/99; PULSE 83; RESP 16; O2SAT 99
[2017-02-27 13:52] VITALS: BP 161/100; PULSE 74; RESP 16; O2SAT 99
[2017-02-27 14:02] VITALS: BP 158/97; PULSE 78; RESP 16; O2SAT 100
--- NOTE | 2017-02-27 14:38 | PCM.ANEP2 ---
Post Anesthesia Evaluation ASA/CMS Post Anesthesia Date of Service: Feb 27, 2017 VS in Patient's Normal Range?: Yes Resp Stable; Airway Patent?: Yes CV Function & Hydration Stable: Yes Mental Status Recovered?: Yes Pain control Satisfactory?: Yes N/V Control Satisfactory?: Yes Andrew Rodriguez MD Feb 27, 2017 14:38
--- NOTE | 2017-02-27 22:21 | ENDO ---
[address] [address] ENDOSCOPY PROCEDURE PATIENT: ILANA ALVARENGA : 1975 MR#: [id number] ADMIT: 02/27/2017 JOB ID: [id number] PRIMARY PROVIDER: Yohana Ramires DO. PROCEDURE: 1. Esophagogastroduodenoscopy with biopsies. 2. Colonoscopy. INDICATIONS: A 41-year-old female who presents for repeat endoscopic examination from above and below for symptoms of difficulty swallowing, abdominal pain, bright red blood per rectum on a background of increasing constipation over the last eight months. EQUIPMENT: GIF H 180 J, PCF H 180 AL. SEDATION: Monitored anesthesia as provided by Dr. Andrew Rodriguez. COMPLICATIONS: None identified. BOWEL PREPARATION: Fair, adequate exam. PROCEDURE INFORMATION: After the risks and benefits were explained, written and verbal informed consent was obtained. The patient was brought into the endoscopy suite and placed into the left lateral decubitus position. Sedation was achieved using the above-stated medications with the addition of oxygen via nasal cannula. The scope was introduced into the mouth through the bite block and advanced to the second portion of the duodenum. The scope was slowly withdrawn to carefully examine the mucosa for any defects or lesions. Retroflexed views were accomplished in the stomach, the stomach was decompressed, the scope removed from the patient who tolerated the procedure well. The patient was then turned around. A digital rectal examination accomplished. No significant pathology appreciated. The scope introduced into the rectum and advanced to the cecum as identified by the appendiceal orifice and ileocecal valve. The scope was slowly withdrawn to carefully examine the mucosa for any defects or lesions. Retroflexed views were avoided in the rectum. Multiple direct views were made through the dentate line for exclusion of pathology. The colon was decompressed. The scope removed from the patient who tolerated the procedure well. FINDINGS: 1. Duodenum: This appeared visually unremarkable from the bulb through to the second portion. 2. Stomach: The patient had mild nonspecific erosive gastropathy. Biopsy was taken for exclusion of Helicobacter or other pathology. No ulcers, no outlet obstruction, no mass lesions. Retroflexed views of the LES were rather unremarkable. 3. Esophagus: The squamocolumnar junction correlated with the top of the gastric folds. The GEJ was at 37 cm from the incisors. No acute erosive changes. No strictures. No mass lesions. The body of the esophagus additionally appeared normal, but I took a biopsy at random for exclusion of eosinophilic infiltration considering the patient's reported challenges with swallowing. 4. Colon: Extremely redundant, tortuous navigation. Very challenging to finally arrive in cecum. No significant polyps, mass lesions, or inflammatory features identified throughout. Moderate internal hemorrhoidal cushions noted on direct views. ENDOSCOPIC DIAGNOSES: 1. Erosive gastropathy. 2. Otherwise visually unremarkable esophagogastroduodenoscopy. 3. Redundant, lengthy, twisty colon. 4. Hemorrhoids. RECOMMENDATIONS: 1. Await histopathology. 2. Regular portion of organic sauerkraut into the dietary stream is recommended. 3. 2 tablespoons ground flaxseed fiber mixed with 8 ounces of water or juice at least once, maybe twice daily. 4. Regular MiraLAX as needed to facilitate bowel movements daily. 5. Follow up in GI clinic with Su Maldonado in about four weeks' time. Depending on how symptoms have abated or persisted, further evaluation may be necessary with the likes of manometry and/or pH testing.
--- NOTE | 2017-02-28 14:51 | PATH ---
SURGICAL PATHOLOGY Attending Physician:Bhargavi Rodney CASE STATUS: Signed Out PATIENT NAME: ILANA ALVARENGA PID: [id number] : 1975 DATE COLLECTED:02/27/2017 20:29 SPECIMEN: 1: Gastric, Biopsy 2: Esophagus, Biopsy CLINICAL HISTORY: 1). GASTRIC BIOPSY 2). MID ESOPHAGEAL BIOPSY FINAL DIAGNOSIS: 1. Stomach, Biopsy: Antral mucosa with no diagnostic abnormality. Negative for Helicobacter organisms. Negative for intestinal metaplasia. Negative for dysplasia 2. Mid Esophagus, Biopsy: Squamous epithelium with no diagnostic abnormality. Intraepithelial eosinophils are not increased. Negative for dysplasia and malignancy. ICD10 R10.13 GROSS DESCRIPTION: The specimen is received in two formalin filled containers labeled with the patient's name. 1). The specimen is sublabeled "gastric" and consists of a 0.3 x 0.3 x 0.2 CM portion of tissue which is entirely submitted in cassette 1A. 2). The specimen is sublabeled "mid esophageal" and consists of a 0.1 x 0.1 x 0.1 CM portion of tissue which is entirely submitted in cassette 2A. 02/27/2017 [facility] ICD-9 CODES: CPT CODES: 1: 56136 2: 19230 Electronically Signed Out Sabine Beauchamp MD [facility] Pathology [facility] [address], [place] [address] Technical component performed at [facility], [address] [place] [address] Ave[address], [place], [address]
== END 2017-02-27 23:59 | disposition home or self-care (01) ==
LOC: END 11:41
PROVIDERS: ATTEND Internal Medicine Gastroenterology
DX: K31.9 Disease of stomach and duodenum, unspecified (principal); K64.8 Other hemorrhoids; R10.31 Right lower quadrant pain; R13.14 Dysphagia, pharyngoesophageal phase; I10 Essential (primary) hypertension; N30.10 Interstitial cystitis (chronic) without hematuria; F41.9 Anxiety disorder, unspecified; M70.61 Trochanteric bursitis, right hip; F32.9 Major depressive disorder, single episode, unspecified; G89.29 Other chronic pain; M79.7 Fibromyalgia; K21.9 Gastro-esophageal reflux disease without esophagitis
CPT/HCPCS: 43239; 45378; J7120